=== PATIENT | female | born 1970 | race Caucasian/White ===

== ENCOUNTER 2017-09-02 08:13 | Emergency (ER) | payer MEDICARE, OTHER ==
[~2017-09-02] VITALS: Ht 165.1 cm; Wt 90.7 kg
[2017-09-02] MEDS ORDERED: CARBATROL200 MG PO (08:27)
== END 2017-09-02 09:52 | disposition home or self-care (01) ==
LOC: ED 08:13
DX: G40.909 Epilepsy, unspecified, not intractable, without status epilepticus (principal); F17.200 Nicotine dependence, unspecified, uncomplicated; Z88.6 Allergy status to analgesic agent; Z79.899 Other long term (current) drug therapy
CPT/HCPCS: 80048; 80156; 85025; 99283; J7030